=== PATIENT | female | born 1995 ===

== ENCOUNTER 2024-03-22 08:20 | Outpatient (AMB) | payer OTHER, SELFPAY ==
--- NOTE | 2024-03-22 08:29 | A.OFFPC_ITS ---
Vital Signs 03/22/24 08:36 Height 5 ft 1.5 in Weight 189 lb BMI 35.1 BP 104/64 Blood Pressure Location Lt brachial Position Sitting Respiration 14 Pulse 110 H Pulse Source Pulse Oximeter Temp 98.2 F Temp Source Oral Intake Visit Reasons: wants to discuss thyroids and pupil - see comment Intake Note: New patient visit. Issue with pupil. Saw Kamille Morfin at Dr Trujillo office. Needs to get back on thyroid medicaion. Audit Specialist Required: No Is last menstrual period known: Yes Last menstrual period: 03/10/24 Patient : No Allergies No Known Allergies Allergy (Verified 03/22/24 08:31) Tobacco use date assessed: 03/22/24 Dental Screening Dental Screen Date: 03/22/24 Did you have a dental visit in the last 12 months?: No Did you have a dental problem in the last 6 months where you did not have access to dental care?: No Was dental information given to patient?: Patient has dentist HPI HPI Comments History of Present Illness Details The patient is a 29 year old female with a past medical history of anxiety, depression hypothyroid, aniscoria presenting to [facility] care Patient has see Dr Trujillo office for intermittent aniscoria. Her right pupil has not been dilated when light dims. Her left pupil fluctuates in size. Anatomically narrow angles otherwise nothing abnormal on exam. Advised f/up with neurology. She notes this has been very prevalent since the past year but when she looks back at pictures she can note asymmetry since 2019. She denies severe headache. She does get ~2 dull headaches per week. She has a history of tinnitus which can be bilateral or unilateral, either right or left. denies pulsatile. No vision changes. She has had intermittent vertigo. She has seen ENT. Endocrine: Has hashimotos. Currently on levothyroxin 88mcg daily. Previously following with endocrinology. They have discharged her to primary care [facility] Medical History (Updated 03/22/24 @ 09:16 by Brooke Rausch MD) Depression Anxiety Vertigo Memory loss Headache Bright's disease Sinusitis Surgical History (Updated 03/22/24 @ 08:44 by Lizzie Reeves CMA) H/O section Family History (Updated 03/22/24 @ 08:48 by Lizzie Reeves CMA) Mother Diabetes Father Diabetes Thyroid disorder Maternal Grandfather HTN (hypertension) Hypercholesteremia Paternal Grandfather Prostate cancer Skin cancer Paternal Grandmother Breast cancer Other FHx: mental illness Substance use Social History (Updated 03/22/24 @ 08:34 by Lizzie Reeves [facility]) Housing: House Patient Tobacco Use Status: Never used Tobacco e-Cigarette/Vaping Use: Never Used Second Hand Smoke Exposure: No service: No Current occupational status: other Current occupation: Stay at home mom Cognitive needs: No Hearing needs: No Vision needs: Yes (glasses) Female Reproductive History Menstrual Date of last menstrual period: 03/10/24 Questionnaire PHQ-9 Over the last 2 weeks, how often have you been bothered by any of the following problems? 1. Little interest or pleasure in doing things: several days 2. Feeling down, depressed, or hopeless: several days 3. Trouble falling or staying asleep, or sleeping too much: several days 4. Feeling tired or having little energy: several days 5. Poor appetite or overeating: not at all 6. Feeling bad about yourself - or that you are a failure or have let yourself or your family down: not at all 7. Trouble concentrating on things, such as reading the newspaper or watching television: not at all 8. Moving or speaking so slowly that other people could have noticed. Or the opposite - being so fidgety or restless that you have been moving around a lot more than usual: not at all 9. Thoughts that you would be better off or of hurting yourself in some way: not at all Total score: 4 Depression Screening Interpretation: Positive Depression Screening Follow-up: Community Mental Health Worker F/U Depression Screening Done: Yes 84090 - PHQ-9 Billing: Yes Source: Developed by Drs. Gordon Harden, Vesna Medeiros, Navneet Gomez and colleagues, with an educational miguel from [email or web address]. Thrive Questionnaire Date Thrive assessed: 03/22/24 I am a: Patient What is your living situation today?: I have a steady place to live Within the past 12 months, did the food you bought not last and you didn't have the money to get more?: Never true Within the past 12 months, did you worry whether your food would run out before you got money to buy more?: Never true Do you have trouble paying for medicines?: No Do you have trouble getting transportation to medical appointments?: No Do you have trouble paying your heating and electricity bill?: No Do you have trouble taking care of your child, family member or friend?: No Do you have trouble with day-to-day activities such as bathing, preparing meals, shopping, managing finances, etc.?: No Are you currently unemployed and looking for a job?: No Are you interested in more education?: No Please select the resources that you would like help with: None Currently or been in a relationship where the following occur: no concerns reported THRIVE Score: 0 AUDIT C Alcohol Use Questionnaire (AUDIT-C) 1. How often do you have a drink containing alcohol?: Never 3. How often do you have six or more drinks on one occasion?: Never Total Score: 0 VIANCA-7 AMB Questionnaire VIANCA-7 Date VIANCA - 7 assessed: 03/22/24 Feeling nervous, anxious, or on edge: 1 = Several days Not being able to stop or control worryin = Several days Worrying too much about different things: 1 = Several days Trouble relaxin = Several days Being so restless that it is hard to sit still: 1 = Several days Becoming easily annoyed or irritable: 1 = Several days Feeling afraid as if something awful might happen: 0 = Not at all Total VIANCA-7 score (0-4 normal; 5-9 mild; 10-14 moderate; 15-21 severe): 6 Source: Developed by Drs. Gordon Harden, Vesna Medeiros, Navneet Gomez and colleagues, with an educational miguel from [employer]. VIANCA-7 Assessment Billing VIANCA-7 Assessment Tool: VIANCA-7 Assessment 80102 Review of Systems Const Details: see HPI Physical exam (Primary Care) Vital Signs: Last Vital Signs Temp 98.2 F 03/22/24 08:36 Pulse 110 H 03/22/24 08:36 Resp 14 03/22/24 08:36 BP 104/64 03/22/24 08:36 PHYSICAL EXAM: GENERAL: Alert and oriented x 3. NAD EYES: EOMI. Anicteric. Pictures provided notable for pupil assymetry HENT: Moist mucous membranes. No scleral icterus. No cervical lymphadenopathy. LUNGS: Clear to auscultation bilaterally. CARDIOVASCULAR: Regular rate and rhythm. No murmur. No JVD. ABDOMEN: Soft, non-tender +bs EXTREMITIES: No edema. Non-tender. SKIN: No rashes or lesions. Warm. NEUROLOGIC: No focal deficits at present PSYCHIATRIC: Cooperative. Appropriate mood and affect BMI result Body Mass Index 35.1 Tobacco/Smoking Status: Tobacco use Status Tobacco use date assessed 03/22/24 03/22/24 08:50 Patient Tobacco Use Status Never used Tobacco 03/22/24 08:50 e-Cigarette/Vaping Use Never Used 03/22/24 08:50 PHQ-9: PHQ-9 Score PHQ-9: Total score 4 03/22/24 08:50 Depression Screening Interpretation: Positive Depression Screening Follow-up: Community Mental Health Worker F/U Thrive Assessment: Date of Thrive Assessment Date Thrive assessed 03/22/24 03/22/24 08:50 Currently or been in a relationship where the following occur: no concerns reported Assessment and Plan Assessment & Plan (1) Vertigo: Comment: Saw ENT. Also with tinnitus. 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 Doing well Code(s): F41.9 - Anxiety disorder, unspecified (5) Anisocoria: Comment: Referral to neurology. MRI ordered. labs ordered Code(s): H57.02 - Anisocoria (6) Frequent headaches: Comment: 2x/wk Code(s): R51.9 - Headache, unspecified Orders: Orders MR head/brain wo/w con Today E06.3 - Autoimmune thyroiditis, F32.A - Depression, unspecified, F41.9 - Anxiety disorder, unspecified, H57.02 - Anisocoria, R42 - Dizziness and giddiness, R51.9 - Headache, unspecified Complete Blood Count Auto Diff Today E06.3 - Autoimmune thyroiditis, F32.A - Depression, unspecified, F41.9 - Anxiety disorder, unspecified, H57.02 - Anisocoria, R42 - Dizziness and giddiness, R51.9 - Headache, unspecified Comprehensive Met. Panel Today E06.3 - Autoimmune thyroiditis, F32.A - Depression, unspecified, F41.9 - Anxiety disorder, unspecified, H57.02 - Anisocoria, R42 - Dizziness and giddiness, R51.9 - Headache, unspecified TSH reflex Free T4 Today E06.3 - Autoimmune thyroiditis, F32.A - Depression, unspecified, F41.9 - Anxiety disorder, unspecified, H57.02 - Anisocoria, R42 - Dizziness and giddiness, R51.9 - Headache, unspecified Erythrocyte Sedimentation Rate Today E06.3 - Autoimmune thyroiditis, F32.A - Depression, unspecified, F41.9 - Anxiety disorder, unspecified, H57.02 - Anisocoria, R42 - Dizziness and giddiness, R51.9 - Headache, unspecified Lyme IgG/IgM w/reflex to WB Today E06.3 - Autoimmune thyroiditis, F32.A - Depression, unspecified, F41.9 - Anxiety disorder, unspecified, H57.02 - Anisocoria, R42 - Dizziness and giddiness, R51.9 - Headache, unspecified TWIN Reflex Titer and Pattern Today E06.3 - Autoimmune thyroiditis, F32.A - Depression, unspecified, F41.9 - Anxiety disorder, unspecified, H57.02 - Anisoc oria, R42 - Dizziness and giddiness, R51.9 - Headache, unspecified Vitamin D 1,25 dihydroxy Today E06.3 - Autoimmune thyroiditis, F32.A - Depression, unspecified, F41.9 - Anxiety disorder, unspecified, H57.02 - Anisocoria, R42 - Dizziness and giddiness, R51.9 - Headache, unspecified Vitamin B3 (Niacin) Today E06.3 - Autoimmune thyroiditis, F32.A - Depression, unspecified, F41.9 - Anxiety disorder, unspecified, H57.02 - Anisocoria, R42 - Dizziness and giddiness, R51.9 - Headache, unspecified Hemoglobin A1c Today E06.3 - Autoimmune thyroiditis, F32.A - Depression, unspecified, F41.9 - Anxiety disorder, unspecified, H57.02 - Anisocoria, R42 - Dizziness and giddiness, R51.9 - Headache, unspecified Cortisol Random Today E06.3 - Autoimmune thyroiditis, F32.A - Depression, unspecified, F41.9 - Anxiety disorder, unspecified, H57.02 - Anisocoria, R42 - Dizziness and giddiness, R51.9 - Headache, unspecified Vitamin B2 (Riboflavin) Today E06.3 - Autoimmune thyroiditis, F32.A - Depression, unspecified, F41.9 - Anxiety disorder, unspecified, H57.02 - Anisocoria, R42 - Dizziness and giddiness, R51.9 - Headache, unspecified Vitamin B6 Today E06.3 - Autoimmune thyroiditis, F32.A - Depression, unspecified, F41.9 - Anxiety disorder, unspecified, H57.02 - Anisocoria, R42 - Dizziness and giddiness, R51.9 - Headache, unspecified Magnesium Today E06.3 - Autoimmune thyroiditis, F32.A - Depression, unspecified, F41.9 - Anxiety disorder, unspecified, H57.02 - Anisocoria, R42 - Dizziness and giddiness, R51.9 - Headache, unspecified Vitamin B12 Today H57.02 - Anisocoria Referrals Neurology Referral E06.3 - Autoimmune thyroiditis, F32.A - Depression, unspecified, F41.9 - Anxiety disorder, unspecified, H57.02 - Anisocoria, R42 - Dizziness and giddiness, R51.9 - Headache, unspecified Coding Level of Care Code Tele New Pt Level 5 (17433) Complex EM visit Add On G2211 Diagnoses Vertigo R42 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 Recurrent major depressive disorder, in partial remission F33.41 Depression Type: major depressive disorder Major depression recurrence: recurrent Active/Remission status: in partial remission Anxiety F41.9 Anisocoria H57.02 Frequent headaches R51.9 Additional Codes VIANCA-7 Assessment Billing - VIANCA-7 Assessment Tool: VIANCA-7 Assessment 80640 ([id number]) Time Spent (min) 65
[2024-03-22 08:36] VITALS: BP 104/64; PULSE 110; RESP 14; TEMP 36.8; BMI 35.1
== END 2024-03-22 10:21 | disposition home or self-care (01) ==
PROVIDERS: Visit Provider Internal Medicine
DX: R42 Dizziness and giddiness (principal); E06.3 Autoimmune thyroiditis; F33.41 Major depressive disorder, recurrent, in partial remission; F41.9 Anxiety disorder, unspecified; H57.02 Anisocoria; R51.9 Headache, unspecified
CPT/HCPCS: 99205; G2211

== ENCOUNTER 2024-03-22 09:19 | Outpatient (REF) | payer OTHER, SELFPAY ==
[2024-03-22 11:21] LABS: MANUAL DIFF FLAG NO
[2024-03-22 11:35] LABS: Basophils Percent Auto 0.6 % (0-2); Eosinophils Percent Auto 0.8 % (0-4); Hematocrit 42.4 % (37.0-47.0); Hemoglobin 14.8 g/dl (12.0-16.0); Imm Gran Abs Auto 0.02 X10*3/uL (0.00-0.03); Imm Gran Pct Auto 0.4 % (0.0-0.4); Lymphocytes Absolute Auto 1.3 X10*3/uL (1.2-4.9); Lymphocytes Percent Auto 26.2 % (20-40); Mean Corpuscular HGB Conc 34.9 g/dl (31.0-35.0); Mean Corpuscular Hemoglobin 30.2 pg (27.0-33.0); Mean Corpuscular Volume 86.5 fL (80.0-98.0); Mean Platelet Volume 10.8 fL (9.4-12.3); Monocytes Absolute Auto 0.4 X10*3/uL (0.1-1.2); Monocytes Percent Auto 7.7 % (2-11); Neutrophils Absolute Auto 3.2 x10*3/uL (2.0-8.3); Neutrophils Percent Auto 64.3 % (45-73); Platelet Count 249 X10*3/uL (160-400); Red Cell Distribution Width 12.7 % (11.0-16.0); White Blood Count 4.9 X10*3/uL (4.8-10.8)
[2024-03-22 11:41] LABS: Estimated Average Glucose 103 mg/dL; Hemoglobin A1c % 5.2 % (<6.0)
[2024-03-22 11:47] LABS: Alanine Aminotransferase 10 U/L (0-31); Albumin Level 4.2 g/dL (3.5-5.0); Alkaline Phosphatase 57 U/L (39-117); Anion Gap 13 (12-20); Aspartate Amino Transferase 15 U/L (5-31); Bilirubin Total 0.8 mg/dL (0.0-1.0); Blood Urea Nitrogen 11 mg/dL (9-16); Calcium 9.1 mg/dL (8.4-10.2); Carbon Dioxide 24 mmol/L (22-29); Chloride 106 mmol/L (96-108); Estimated Glomerular Filt Rate > 60; Glucose Random 93 mg/dL (60-115); Magnesium 1.7 mg/dL (1.6-2.6); Potassium 3.5 mmol/L (3.3-5.1); Sodium 139 mmol/L (135-145); Total Protein 7.2 g/dL (6.5-8.0)
[2024-03-22 12:06] LABS: Vitamin B12 351 pg/mL (200-900)
[2024-03-22 12:10] LABS: TSH reflex Free T4 3.68 uIU/mL (0.32-4.0)
[2024-03-22 12:21] LABS: Erythrocyte Sedimentation Rate 2 MM/HR (0-20)
[2024-03-23 08:33] LABS: Lyme Abs Screen <0.90 index
[2024-03-26 14:52] LABS: VITAMIN D (1,25 OH) D3 38 pg/mL; Vit D (1,25-Dihydroxy) Total 38 pg/mL (18-72); Vitamin D (1,25 OH) D2 <8 pg/mL
[2024-03-27 17:33] LABS: Nicotinamide 22 ng/mL; Vit B3 - Nicotinic Acid <20 ng/mL
[2024-03-28 09:09] LABS: Anti Nuclear Antibody Pattern Nuclear, Homogeneous; Anti Nuclear Antibody Screen POSITIVE (NEGATIVE)
[2024-03-29 06:19] LABS: Vitamin B6 10.7 ng/mL (2.1-21.7)
== END 2024-03-22 09:20 | disposition home or self-care (01) ==
LOC: HO.WFDLDS 09:19
PROVIDERS: Visit Provider Internal Medicine
DX: R51.9 Headache, unspecified (principal); H57.02 Anisocoria; R42 Dizziness and giddiness; E06.3 Autoimmune thyroiditis; F32.A Depression, unspecified; F41.9 Anxiety disorder, unspecified
CPT/HCPCS: 36415; 80053; 82533; 82607; 82652; 83036; 83735; 84207; 84443; 84591; 85025; 85652; 86038; 86039; 86617; 86618

== ENCOUNTER 2024-05-24 09:04 | Outpatient (AMB) | payer OTHER, SELFPAY ==
--- NOTE | 2024-05-24 09:09 | MHC.PC.OV ---
Vital Signs 05/24/24 09:11 Height 5 ft 1 in Weight 180 lb BMI 34.0 BP 108/60 Blood Pressure Location Lt brachial Position Sitting Pulse 82 Pulse Source Pulse Oximeter Pulse Oximetry (%) 99 Oxygen Delivery Method Room Air Intake Visit Reasons: F/U 2 months Intake Note: Patient is here for a follow up today. Patient reports sometimes feeling dizzy, asked about low blood pressure. Public Relations Consultant Required: No Accompanied by: Self / Same As Patient Allergies No Known Allergies Allergy (Verified 05/24/24 09:15) Tobacco use date assessed: 03/22/24 Dental Screening Dental Screen Date: 03/22/24 HPI HPI Comments History of Present Illness Details The patient is a 29 year old female with a past medical history of anxiety, depression hypothyroid, aniscoria presenting for follow up Patient has see Dr Trujillo office for intermittent aniscoria. Her right pupil has not been dilated when light dims. Her left pupil fluctuates in size. Anatomically narrow angles otherwise nothing abnormal on exam. Advised f/up with neurology. She notes this has been very prevalent since the past year but when she looks back at pictures she can note asymmetry since 2019. She denies severe headache. She does get ~2 dull headaches per week. She has a history of tinnitus which can be bilateral or unilateral, either right or left. denies pulsatile. No vision changes. She has had intermittent vertigo. She has seen ENT. Saw [facility] neurology, YAYO burgess. MRI/MRA on June 05. Possibly think Pending rheumatology June Endocrine: Has hashimotos. Currently on levothyroxine 88mcg daily. Previously following with endocrinology. They have discharged her to primary care ROS CONSTITUTIONAL: Denies weight loss, fever and chills. HEENT: Denies changes in vision and hearing. RESPIRATORY: Denies SOB and cough. CV: Denies palpitations and CP GI: Denies abdominal pain, nausea, vomiting and diarrhea. : Denies dysuria and urinary frequency. MSK: Denies new myalgia and joint pain. SKIN: Denies rash and pruritus. NEUROLOGICAL: Denies headache PSYCHIATRIC: Denies recent changes in mood. PHYSICAL EXAM: GENERAL: Alert and oriented x 3. NAD EYES: EOMI. Anicteric. HENT: Moist mucous membranes. No scleral icterus. LUNGS: Clear to auscultation bilaterally. CARDIOVASCULAR: Regular rate and rhythm. No murmur. No JVD. ABDOMEN: Soft, non-tender +bs EXTREMITIES: No edema. Non-tender. SKIN: No rashes or lesions. Warm. NEUROLOGIC: Mild aniscoria PSYCHIATRIC: Cooperative. Appropriate mood and affect [facility] Medical History Depression Anxiety Vertigo Memory loss Headache Bright's disease Sinusitis Surgical History H/O section Family History Mother Diabetes Father Diabetes Thyroid disorder Maternal Grandfather HTN (hypertension) Hypercholesteremia Paternal Grandfather Prostate cancer Skin cancer Paternal Grandmother Breast cancer Other FHx: mental illness Substance use Social History Housing: House Patient Tobacco Use Status: Never used Tobacco e-Cigarette/Vaping Use: Never Used Second Hand Smoke Exposure: No service: No Current occupational status: other Current occupation: Stay at home mom Cognitive needs: No Hearing needs: No Vision needs: Yes (glasses) Questionnaire Thrive Questionnaire Date Thrive assessed: 03/22/24 VIANCA-7 AMB Questionnaire VIANCA-7 Date VIANCA - 7 assessed: 03/22/24 Source: Developed by Drs. Gordon Harden, Vesna Medeiros, Navneet Gomez and colleagues, with an educational miguel from [employer]. Physical exam (Primary Care) Vital Signs: Last Vital Signs Pulse 82 05/24/24 09:11 BP 108/60 05/24/24 09:11 Pulse Ox 99 05/24/24 09:11 Oxygen Delivery Method Room Air 05/24/24 09:11 BMI result Body Mass Index 34.0 Tobacco/Smoking Status: Tobacco use Status Tobacco use date assessed 03/22/24 05/24/24 09:14 Patient Tobacco Use Status Never used Tobacco 05/24/24 09:14 e-Cigarette/Vaping Use Never Used 05/24/24 09:14 Thrive Assessment: Date of Thrive Assessment Date Thrive assessed 03/22/24 05/24/24 09:14 Assessment and Plan Assessment & Plan (1) Anisocoria: Code(s): H57.02 - Anisocoria Plan: Follow up neurology, MRA/MRI (2) Frequent headaches: Code(s): R51.9 - Headache, unspecified Plan: MRI/MRA pending. (3) Positive TWIN (antinuclear antibody): Code(s): R76.8 - Other specified abnormal immunological findings in serum Plan: rheumatology pending (4) Vertigo: Comment: Saw ENT. Also with tinnitus. Can be unilateral but changes or bilateral Code(s): R42 - Dizziness and giddiness Medications: New meclizine 25 mg PO BID PRN 30 tabs 0RF dizziness 30 days Coding Level of Care Code Est Pt Level 4 (77573) Diagnoses Anisocoria H57.02 Frequent headaches R51.9 Positive TWIN (antinuclear antibody) R76.8 Vertigo R42
[2024-05-24 09:11] VITALS: BP 108/60; PULSE 82; O2SAT 99; BMI 34.0
== END 2024-05-24 09:43 | disposition home or self-care (01) ==
PROVIDERS: PCP Internal Medicine; Visit Provider Internal Medicine
DX: H57.02 Anisocoria (principal); R51.9 Headache, unspecified; R76.8 Other specified abnormal immunological findings in serum; R42 Dizziness and giddiness
CPT/HCPCS: 99214

== ENCOUNTER 2024-09-03 11:31 | Outpatient (AMB) | payer OTHER, SELFPAY ==
--- NOTE | 2024-09-03 11:33 | A.OFFPC_ITS ---
Vital Signs 09/03/24 11:36 Height 5 ft 1 in Weight 190 lb 2 oz BMI 35.9 BP 104/67 Blood Pressure Location Lt brachial Position Sitting Respiration 13 Pulse 61 Pulse Source Pulse Oximeter Pulse Oximetry (%) 98 Oxygen Delivery Method Room Air Intake Visit Reasons: Transfer of care from [facility] - see comments Intake Note: keanu and needs a new referral Allergies No Known Allergies Allergy (Verified 09/03/24 12:12) Medication List - Last Reconciled 09/03/24 by KHOI Skaggs- buspirone 10 mg PO TID levothyroxine 88 mcg PO DAILY meclizine 25 mg PO BID PRN 30 days Tobacco use date assessed: 03/22/24 Dental Screening Dental Screen Date: 03/22/24 HPI HPI Comments History of Present Illness Details Mary Kay 29 year old female with VIANCA, MDD, hypothyroid, Right aniscoria d/t Horners Syndrome , + TWIN s/p c section 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 PAP ? Tdap 07/09/2019 Labs 03/2024 WNL except + TWIN Specialists: ENT of [facility] for vertigo and tinnitus Neuro Ashu Al [facility] concern for MS? Optho Dr Elisabeth Morfin Counselor [facility] told of fibro dx no f/u scheduled Endo [facility] next appt 10/2024 manages thyroid Here today to est care She has hypothyroidism, currently followed by endocrinology. Has not been consistent with taking her levothyroxine. Her last TSH was 3.94 in March. Reports that overall she feels well when her TSH is closer to 1. Be that as it may, she has been inconsistently taking levothyroxine 88 mcg since February. Generalized anxiety disorder, she is active with a counselor. She was prescribed buspirone 10 mg PO TID. She has not started yet. She will start this however wishes to titrate slowly. In other regards her biggest medical problem at this time is that of anisocoria, vertigo and headaches. She was in her normal state of health until February of 2024. Her right pupil is smaller than her left. She feels very dizzy when she was lying flat. If she gets up too quick she feels floaty an odd. When she moves her head and turns head specifically to the right she feels dizzy. She did see ENT for this. 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 However the symptoms that she has are different than this. She was referred to a neuro- supervisor cooperage shop by her primary supervisor cooperage shop. A workup was started. Ultimately an MRI of the cervical spine only to rule out tumor, spinal disease and carotid dissection, an MRA of the neck carotids and arch to rule out carotid dissection on the right, and a CTA of the brain especially right brainstem to the retro orbit and globes was ordered. For reasons discussed today at the visit they were not completed. Patient would like to pursue these images through primary care. Specifically she would like to use [facility] but will see [facility] if needed; does not prefer [facility]. Ortho VS today during exam, Left arm: Sitting 112/70 P 74 Sitting 124/80 P 67 standing 120/78 78 Lying Standing from lying 120/80 P jumped to 101 felt slightly dizzy Exam: GENERAL: Alert and oriented x 3. NAD EYES: EOMI. Anicteric. Aniscoria R pupil smaller than L, reactive HENT: Moist mucous membranes. No scleral icterus. LUNGS: Clear to auscultation bilaterally. CARDIOVASCULAR: Regular rate and rhythm. No murmur. No JVD. EXTREMITIES: No edema. Non-tender. NEUROLOGIC: Other than aniscoria, No focal deficits at present PSYCHIATRIC: Cooperative. Appropriate mood and affect Plan: Check labs today - at close of note no results. Will review once they are done and resulted. MRI/MRA and CTA ordered as above. Ok to titrate the buspirone; cont w counselor Will need to restart levothyroxine. Will await TSH results. Advised if ok w/ Endo, I would be happy to monitor her Hypothyroid going forward. At this time, keep 10/2024 fu with Endo I would like to see her back in about 6 weeks to fu on the above, sooner PRN This note is constructed using voice recognition software. While every effort has been made to ensure accuracy in dredge pipe installer, still errors may have been included Sometimes, these errors may affect the content or meaning of the given sentence . Total time spent caring for the patient today was 70 minutes. This includes time spent before the visit reviewing the chart, time spent during the visit, and time spent after the visit on documentation [facility] Medical History (Updated 09/03/24 @ 14:48 by KHOI Skaggs-BC) Depression Anxiety Vertigo Memory loss Headache Bright's disease Sinusitis Surgical History H/O section Family History Mother Diabetes Father Diabetes Thyroid disorder Maternal Grandfather HTN (hypertension) Hypercholesteremia Paternal Grandfather Prostate cancer Skin cancer Paternal Grandmother Breast cancer Other FHx: mental illness Substance use Social History Housing: House Patient Tobacco Use Status: Never used Tobacco e-Cigarette/Vaping Use: Never Used Second Hand Smoke Exposure: No service: No Current occupational status: other Current occupation: Stay at home mom Cognitive needs: No Hearing needs: No Vision needs: Yes (glasses) Questionnaire PHQ-9 Over the last 2 weeks, how often have you been bothered by any of the following problems? 70947 - PHQ-9 Billing: Patient declined-do not bill Source: Developed by Drs. Gordon Harden, Vesna Medeiros, Navneet Gomez and colleagues, with an educational miguel from [employer]. Thrive Questionnaire Date Thrive assessed: 09/03/24 I am a: Patient What is your living situation today?: I choose not to answer this question Within the past 12 months, did the food you bought not last and you didn't have the money to get more?: I choose not to answer this question Within the past 12 months, did you worry whether your food would run out before you got money to buy more?: I choose not to answer this question Do you have trouble paying for medicines?: I choose not to answer this question Do you have trouble getting transportation to medical appointments?: I choose not to answer this question Do you have trouble paying your heating and electricity bill?: I choose not to answer this question Do you have trouble taking care of your child, family member or friend?: I choose not to answer this question Do you have trouble with day-to-day activities such as bathing, preparing meals, shopping, managing finances, etc.?: I choose not to answer this question Are you currently unemployed and looking for a job?: I choose not to answer this question Are you interested in more education?: I choose not to answer this question Please select the resources that you would like help with: None Currently or been in a relationship where the following occur: I choose not to answer THRIVE Score: 0 AUDIT C Alcohol Use Questionnaire (AUDIT-C) 1. How often do you have a drink containing alcohol?: Never Total Score: 0 VIANCA-7 AMB Questionnaire VIANCA-7 Date VIANCA - 7 assessed: 09/03/24 Feeling nervous, anxious, or on edge: 1 = Several days Not being able to stop or control worryin = Several days Worrying too much about different things: 1 = Several days Trouble relaxin = Several days Being so restless that it is hard to sit still: 0 = Not at all Becoming easily annoyed or irritable: 0 = Not at all Feeling afraid as if something awful might happen: 0 = Not at all Total VIANCA-7 score (0-4 normal; 5-9 mild; 10-14 moderate; 15-21 severe): 4 Source: Developed by Drs. Gordon Harden, Vesna Medeiros, Navneet Gomez and colleagues, with an educational miguel from [employer]. VIANCA-7 Assessment Billing VIANCA-7 Assessment Tool: VIANCA-7 Assessment 71836 Physical exam (Primary Care) Vital Signs: Last Vital Signs Pulse 61 09/03/24 11:36 Resp 13 09/03/24 11:36 BP 104/67 09/03/24 11:36 Pulse Ox 98 09/03/24 11:36 Oxygen Delivery Method Room Air 09/03/24 11:36 BMI result Body Mass Index 35.9 Tobacco/Smoking Status: Tobacco use Status Tobacco use date assessed 03/22/24 09/03/24 11:38 Patient Tobacco Use Status Never used Tobacco 09/03/24 11:38 e-Cigarette/Vaping Use Never Used 09/03/24 11:38 Thrive Assessment: Date of Thrive Assessment Date Thrive assessed 09/03/24 09/03/24 11:38 Currently or been in a relationship where the following occur: I choose not to answer Coding Level of Care Code Est Pt Level 5 (07506) Complex EM visit Add On G2211 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 (2) Anisocoria: Comment: R<L Code(s): H57.02 - Anisocoria Category: Medical Plan: . (3) Positive TWIN (antinuclear antibody): Code(s): R76.8 - Other specified abnormal immunological findings in serum Category: Medical Plan: . (4) Vertigo: Comment: Saw ENT. Also with tinnitus. Can be unilateral but changes or bilateral Code(s): R42 - Dizziness and giddiness Category: Medical Plan: . (5) Frequent headaches: Code(s): R51.9 - Headache, unspecified Category: Medical Plan: . 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 (7) VIANCA (generalized anxiety disorder): Code(s): F41.1 - Generalized anxiety disorder Category: Medical Plan: . (8) MDD (major depressive disorder), recurrent episode: Code(s): F33.9 - Major depressive disorder, recurrent, unspecified Category: Medical Qualifiers: Major depression episode severity: mild Qualified Code(s): F33.0 - Major depressive disorder, recurrent, mild Plan: . Plan . Orders: Orders Complete Blood Count no Diff Today E06.3 - Autoimmune thyroiditis, H57.02 - Anisocoria, R76.8 - Other specified abnormal immunological findings in serum Comprehensive Met. Panel Today E06.3 - Autoimmune thyroiditis, H57.02 - Anisocoria, R76.8 - Other specified abnormal immunological findings in serum Microalbumin, Random (w Creat) Today E06.3 - Autoimmune thyroiditis, H57.02 - Anisocoria, R76.8 - Other specified abnormal immunological findings in serum TSH reflex Free T4 Today E06.3 - Autoimmune thyroiditis, H57.02 - Anisocoria, R76.8 - Other specified abnormal immunological findings in serum Vitamin B12 and Folate Today E06.3 - Autoimmune thyroiditis, H57.02 - Anisocoria, R76.8 - Other specified abnormal immunological findings in serum Vitamin D 25-OH Total Today E06.3 - Autoimmune thyroiditis, H57.02 - Anisocoria, R76.8 - Other specified abnormal immunological findings in serum Ferritin Today E06.3 - Autoimmune thyroiditis, H57.02 - Anisocoria, R76.8 - Other specified abnormal immunological findings in serum MR angio neck wo con Today G90.2 - Estuardo's syndrome, R42 - Dizziness and giddiness, R51.9 - Headache, unspecified CT angio head Today G90.2 - Estuardo's syndrome, R42 - Dizziness and giddiness, R51.9 - Headache, unspecified IRON PROFILE Today E06.3 - Autoimmune thyroiditis, H57.02 - Anisocoria, R76.8 - Other specified abnormal immunological findings in serum Lipid Panel Today E06.3 - Autoimmune thyroiditis, H57.02 - Anisocoria, R76.8 - Other specified abnormal immunological findings in serum MR cervical spine wo con Today G90.2 - Estuardo's syndrome, R42 - Dizziness and giddiness, R51.9 - Headache, unspecified
[2024-09-03 11:36] VITALS: BP 104/67; PULSE 61; RESP 13; O2SAT 98; BMI 35.9
== END 2024-09-03 12:31 | disposition home or self-care (01) ==
PROVIDERS: PCP Internal Medicine; Visit Provider Nurse Practitioner Family
DX: E06.3 Autoimmune thyroiditis (principal); F33.0 Major depressive disorder, recurrent, mild; H57.02 Anisocoria; R76.8 Other specified abnormal immunological findings in serum; R42 Dizziness and giddiness; R51.9 Headache, unspecified; G90.2 Horner's syndrome; F41.1 Generalized anxiety disorder

== ENCOUNTER → 2024-09-03 11:31 | Outpatient (BNVA) | payer OTHER, SELFPAY | PROVIDERS: PCP Internal Medicine; Visit Provider Nurse Practitioner Family | DX: E06.3 Autoimmune thyroiditis (principal); H57.02 Anisocoria; R76.8 Other specified abnormal immunological findings in serum; R42 Dizziness and giddiness; R51.9 Headache, unspecified; G90.2 Horner's syndrome; F41.1 Generalized anxiety disorder; F33.0 Major depressive disorder, recurrent, mild; Z79.899 Other long term (current) drug therapy | CPT/HCPCS: 96127 ==

== ENCOUNTER 2024-09-03 13:36 | Outpatient (REF) | payer OTHER, SELFPAY ==
[2024-09-03 17:28] LABS: Hematocrit 39.3 % (37.0-47.0); Hemoglobin 13.5 g/dl (12.0-16.0); Mean Corpuscular HGB Conc 34.4 g/dl (31.0-35.0); Mean Corpuscular Hemoglobin 29.9 pg (27.0-33.0); Mean Corpuscular Volume 87.1 fL (80.0-98.0); Mean Platelet Volume 10.6 fL (9.4-12.3); Platelet Count 273 X10*3/uL (160-400); Red Blood Count 4.51 X10*6/uL (4.20-5.50); Red Cell Distribution Width 12.6 % (11.0-16.0); White Blood Count 10.5 X10*3/uL (4.8-10.8)
[2024-09-03 17:46] LABS: Alanine Aminotransferase 11 U/L (0-31); Albumin Level 3.9 g/dL (3.5-5.0); Alkaline Phosphatase 59 U/L (39-117); Anion Gap 12 (12-20); Aspartate Amino Transferase 15 U/L (5-31); Bilirubin Total 0.3 mg/dL (0.0-1.0); Blood Urea Nitrogen 14 mg/dL (9-16); Calcium 8.9 mg/dL (8.4-10.2); Carbon Dioxide 24 mmol/L (22-29); Chloride 105 mmol/L (96-108); Cholesterol 133 mg/dL (<200); Estimated Glomerular Filt Rate > 60; Glucose Random 89 mg/dL (60-115); HDL Cholesterol 44 mg/dL (>40); Iron 55 mcg/dL (30-160); LDL Cholesterol Calculated 76 mg/dL (<100); Percent Iron Saturation 19 % (15-50); Potassium 3.8 mmol/L (3.3-5.1); Sodium 137 mmol/L (135-145); Total Iron Binding Capacity 285 mcg/dL (228-428); Total Protein 6.7 g/dL (6.5-8.0); Triglycerides 68 mg/dL (<150); Unsaturated Iron Binding 230 ug/dL
[2024-09-03 18:01] LABS: Ferritin 34 ng/mL (10-122); TSH reflex Free T4 4.57 uIU/mL (0.32-4.0); Vitamin D 25-OH Total 42.8 ng/mL (>30)
[2024-09-03 18:02] LABS: Creatinine Urine 129.77 mg/dL; Microalbumin Urine < 5.0 mg/L
[2024-09-03 18:12] LABS: Folate 6.4 ng/mL (> or = 4.0); Vitamin B12 392 pg/mL (200-900)
[2024-09-03 18:50] LABS: Free T4 (Free Thyroxine) 0.85 ng/dL (0.71-1.85)
== END 2024-09-03 13:37 | disposition home or self-care (01) ==
LOC: HO.WFDLDS 13:36
PROVIDERS: Visit Provider Nurse Practitioner Family
DX: H57.02 Anisocoria (principal); R76.8 Other specified abnormal immunological findings in serum; E06.3 Autoimmune thyroiditis
CPT/HCPCS: 36415; 80053; 80061; 82306; 82570; 82607; 82728; 82746; 83540; 84439; 84443; 85027

== ENCOUNTER 2025-01-10 09:46 | Outpatient (AMB) | payer OTHER, SELFPAY ==
--- NOTE | 2025-01-10 09:59 | A.OFFPC_ITS ---
Intake Visit Reasons: fu mri and ct Allergies No Known Allergies Allergy (Verified 01/10/25 10:05) Medication List - Last Reconciled 01/10/25 by Nikki Slaughter, [employer]SEMBL[employer]- buspirone 10 mg PO TID levothyroxine 88 mcg PO DAILY meclizine 25 mg PO BID PRN 30 days Tobacco use date assessed: 01/10/25 Dental Screening Dental Screen Date: 01/10/25 Did you have a dental visit in the last 12 months?: Yes Did you have a dental problem in the last 6 months where you did not have access to dental care?: No Was dental information given to patient?: Patient has dentist HPI HPI Comments 2 History of Present Illness0 Details Mary Kay 29 year old female with VIANCA, MDD, hypothyroid, Right aniscoria d/t Horners Syndrome , + TWIN s/p c section 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 PAP ? Tdap 07/09/2019 Labs 03/2024 WNL except + TWIN Specialists: ENT of [facility] for vertigo and tinnitus Neuro Ashu Al [facility] concern for MS? she needs to schedule f/u Optho Dr Elisabeth Morfin Counselor Rheum [facility] told of fibro dx no f/u scheduled Endo [facility] next appt 10/2024 manages thyroid At last office visit: biggest medical problem at this time is that of anisocoria, vertigo and headaches. She was in her normal state of health until February of 2024. Her right pupil is smaller than her left. She feels very dizzy when she was lying flat. If she gets up too quick she feels floaty an odd. When she moves her head and turns head specifically to the right she feels dizzy. She did see ENT for this. 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 However the symptoms that she has are different than this. She was referred to a neuro-computational linguist by her primary computational linguist. A workup was started. Ultimately an MRI of the cervical spine only to rule out tumor, spinal disease and carotid dissection, an MRA of the neck carotids and arch to rule out carotid dissection on the right, and a CTA of the brain especially right brainstem to the retro orbit and globes was ordered. For reasons discussed today at the visit they were not completed. Patient would like to pursue these images through primary care. Telehealth visit today to review imaging to mallika Leo anisocoria, headache and dizziness - The patient is a 29-year-old female pr esenting with concerns regarding anisocoria and associated symptoms. - Noticed anisocoria in 2021, with past photographs indicating presence since 2019. - Imaging: Recent MRI of neck and cervic al spine (normal), CTA of head (normal). 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 Wonders about harlequin syndrome during infancy, first 3 days after right side of body white , left side red. - Diagnostic Workup: MRI and CT for Horn er's Syndrome, including brain and neck imaging. - Symptoms: Persistent headaches, vertig o, new swallowing difficulties, and eyelid asymmetry. - Thyroid Disorder: Ongoing management w ith endocrinological oversight. last visit 10/2024, reports tolerance and compliance w/ levothyroxine. Due for labs. Headaches come and go New c/o change in Ability to swallow, feels like it gets stuck, has to chug h20. Happens a few times per day. New in the last 8 months. Right eye lid, has lid lag. This is the same side as aniscoria. Also new. She wonders about labs repeat CBC Mag Phos B vitamins D TSH TWIN Assessment and Plan The 29-year-old female with a history of anisocoria presents with concerns primarily surrounding variable pupil size, now potentially associated with Estuardo's Syndrome. Imaging studies, including MRI of the neck and cervical spine, and CTA of the head displayed no significant findings. However, the patient's identification of potential undocumented sinus findings calls into question the comprehensiveness of her diagnostic evaluation. Symptoms of vertigo, headaches, swallowing difficulties, and eyelid asymmetry persist, potentially related to her past thyroid disorder. Further imaging review is necessary to ensure thorough assessment and clarify any diagnostic ambiguities. Reviewed labs from 03/2024 and 08/2024 all of which were normal except TSH and TWIN. No clinical need to repeat any additional labs as these have all been normal to date. 1. Estuardo's Syndrome Further imaging of thoracic regions is advised, with radiology input for comprehensive evaluation. Consideration of chest imaging to identify potential thoracic or pulmonary contributions. 2. Thyroid Disorder TSH level assessment is pending to correlate symptoms with thyroid function. She wonders about a posterior thyroid tumor causing her aniscoria and wants this to be looked at. 3. Anisocoria Right Anisocoria persists and imaging results show no critical findings to date, although patient-identified sinus concerns exist. A reevaluation of recent imaging is planned to specifically address potential sinus pathology. 4. Vestibular Dysfunction active w/ Neurology for recurring vertigo and headaches Plan: Re-read films. Eval sinuses, lungs, eval thyroid [facility] radiology phone# [phone]. Telehealth Attestation Documentation created based on verbal interaction through telehealth communication. Accuracy of documentation is affirmed. The patient has been explained that this is an interactive (audio/video) telehealth encounter and what that consists of. The patient understands and wishes to proceed. [employer] platform was used. Total time spent caring for the patient today was 69 minutes. This includes time spent before the visit reviewing the chart, time spent during the visit, and time spent after the visit on documentation, reviewing laboratory results, diagnostic imaging, medications, performing a medically necessary evaluation, counseling on diagnoses, care coordination, ordering appropriate tests, ordering appropriate medications, review of tests performed by other providers, reporting test results with the patient, communication with other healthcare providers. [facility] Medical History (Updated 09/03/24 @ 14:48 by Nikki Slaughter [facility]) Anxiety Depression Bright's disease Headache Memory loss Sinusitis Vertigo Surgical History H/O section Family History Mother Diabetes Father Diabetes Thyroid disorder Maternal Grandfather HTN (hypertension) Hypercholesteremia Paternal Grandfather Prostate cancer Skin cancer Paternal Grandmother Breast cancer Other FHx: mental illness Substance use Social History Housing: House Patient Tobacco Use Status: Never used Tobacco e-Cigarette/Vaping Use: Never Used Second Hand Smoke Exposure: No service: No Current occupational status: other Current occupation: Stay at home mom Cognitive needs: No Hearing needs: No Vision needs: Yes (glasses) Questionnaire Thrive Questionnaire Date Thrive assessed: 01/10/25 I am a: Patient What is your living situation today?: I have a steady place to live Within the past 12 months, did the food you bought not last and you didn't have the money to get more?: Never true Within the past 12 months, did you worry whether your food would run out before you got money to buy more?: Never true Do you have trouble paying for medicines?: No Do you have trouble getting transportation to medical appointments?: No Do you have trouble paying your heating and electricity bill?: No Do you have trouble taking care of your child, family member or friend?: No Do you have trouble with day-to-day activities such as bathing, preparing meals, shopping, managing finances, etc.?: No Are you currently unemployed and looking for a job?: No Are you interested in more education?: No Please select the resources that you would like help with: None Currently or been in a relationship where the following occur: No concerns reported THRIVE Score: 0 AUDIT C Alcohol Use Questionnaire (AUDIT-C) 1. How often do you have a drink containing alcohol?: Never 2. How many drinks containing alcohol do you have on a typical day when you are drinking?: 1 or 2 3. How often do you have six or more drinks on one occasion?: Never Total Score: 0 Score Reviewed/Action Taken: Yes VIANCA-7 AMB Questionnaire VIANCA-7 Date VIANCA - 7 assessed: 09/03/24 Source: Developed by Drs. Gordon Harden, Vesna Medeiros, Navneet Gomez and colleagues, with an educational miguel from [employer]. Physical exam (Primary Care) Tobacco/Smoking Status: Tobacco use Status Tobacco use date assessed 01/10/25 01/10/25 10:06 Patient Tobacco Use Status Never used Tobacco 01/10/25 10:06 e-Cigarette/Vaping Use Never Used 01/10/25 10:06 Thrive Assessment: Date of Thrive Assessment Date Thrive assessed 01/10/25 01/10/25 10:06 Currently or been in a relationship where the following occur: No concerns reported Telehealth Telehealth Telehealth Platform: [facility] Location of provider rendering services: practice address Location of patient: address on file Patient Identification confirmed using: Name, : Yes Telehealth method: video (pt unable to see me,so transferred to voice only ) Patient verbally consented to treatment: Yes Patient verbally consented to billing insurance company: Yes Patient informed of any privacy concerns related to visit: Yes Minutes spent on Phone/Video with Pt.: 45 Coding Level of Care Code Tele Est Pt Level 5 (66184) Complex EM visit Add On G2211 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 Orders: Orders 2 TSH reflex Free T4 01/10/25 E06.3 - Autoimmune thyroiditis
== END 2025-01-10 10:30 | disposition home or self-care (01) ==
LOC: HO.HMCFM 09:47
PROVIDERS: PCP Nurse Practitioner Family; Visit Provider Nurse Practitioner Family
DX: E06.3 Autoimmune thyroiditis (principal); G90.2 Horner's syndrome; R76.8 Other specified abnormal immunological findings in serum

== ENCOUNTER → 2025-01-10 09:46 | Outpatient (BNVA) | payer OTHER, SELFPAY | PROVIDERS: PCP Nurse Practitioner Family; Visit Provider Nurse Practitioner Family ==

== ENCOUNTER 2025-02-11 13:58 | Outpatient (REF) | payer OTHER, SELFPAY ==
[2025-02-11 18:35] LABS: TSH reflex Free T4 0.96 uIU/mL (0.32-4.0)
== END 2025-02-11 13:59 | disposition home or self-care (01) ==
LOC: HO.WFDLDS 13:58
PROVIDERS: Visit Provider Nurse Practitioner Family
DX: E06.3 Autoimmune thyroiditis (principal)
CPT/HCPCS: 36415; 84443

== ENCOUNTER 2025-05-12 15:23 | Outpatient (AMB) | payer OTHER, SELFPAY ==
--- NOTE | 2025-05-12 15:27 | MHC.PC.OV ---
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 PAP ? Tdap 07/09/2019 Specialists: E[facility] of [facility] for vertigo and tinnitus Neuro Ashu Al [facility] concern for MS? she needs to schedule f/u Optho Dr Elisabeth Morfin Counselor [facility] told of fibro dx no f/u scheduled Endo [facility] next appt 10/2024 manages thyroid Sleep Med Dr Narendra Newell 02/2025 Adult Neuro-Optho May 1109/03/24 biggest medical problem at this time is that of anisocoria, vertigo and headaches. She was in her normal state of health until February of 2024. Her right pupil is smaller than her left. She feels very dizzy when she was lying flat. If she gets up too quick she feels floaty an odd. When she moves her head and turns head specifically to the right she feels dizzy. She did see ENT for this. 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 However the symptoms that she has are different than this. She was referred to a neuro-breed to wean production technician by her primary breed to wean production technician. A workup was started. Ultimately an MRI of the cervical spine only to rule out tumor, spinal disease and carotid dissection, an MRA of the neck carotids and arch to rule out carotid dissection on the right, and a CTA of the brain especially right brainstem to the retro orbit and globes was ordered. For reasons discussed today at the visit they were not completed. Patient would like to pursue these images through primary care. 01/11/25 Telehealth visit today to review imaging to mallika R anisocoria, headache and dizziness - The patient is a 29-year-old female presenting with concerns regarding anisocoria and associated symptoms. - Noticed anisocoria in 2021, with past photographs indicating presence since 2020. - Imaging: Recent MRI of neck and cervical spine (normal), CTA of head (normal). 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 Wonders about harlequin syndrome during infancy, first 3 days after right side of body white , left side red. - Diagnostic Workup: MRI and CT for Estuardo's Syndrome, including brain and neck imaging. - Symptoms: Persistent headaches, vertigo, new swallowing difficulties, and eyelid asymmetry. - Thyroid Disorder: Ongoing management with endocrinological oversight. last visit 10/2024, reports tolerance and compliance w/ levothyroxine. Due for labs. Headaches come and go New c/o change in Ability to swallow, feels like it gets stuck, has to chug h20. Happens a few times per day. New in the last 8 months. Right eye lid, has lid lag. This is the same side as aniscoria. Also new. She wonders about labs repeat CBC Mag Phos B vitamins D TSH TWIN Assessment and Plan The 29-year-old female with a history of anisocoria presents with concerns primarily surrounding variable pupil size, now potentially associated with Estuardo's Syndrome. Imaging studies, including MRI of the neck and cervical spine, and CTA of the head displayed no significant findings. However, the patient's identification of potential undocumented sinus findings calls into question the comprehensiveness of her diagnostic evaluation. Symptoms of vertigo, headaches, swallowing difficulties, and eyelid asymmetry persist, potentially related to her past thyroid disorder. Further imaging review is necessary to ensure thorough assessment and clarify any diagnostic ambiguities. Reviewed labs from 03/2024 and 08/2024 all of which were normal except TSH and TWIN. No clinical need to repeat any additional labs as these have all been normal to date. 1. Estuardo's Syndrome Further imaging of thoracic regions is advised, with radiology input for comprehensive evaluation. Consideration of chest imaging to identify potential thoracic or pulmonary contributions. 2. Thyroid Disorder TSH level assessment is pending to correlate symptoms with thyroid function. She wonders about a posterior thyroid tumor causing her aniscoria and wants this to be looked at. 3. Anisocoria Right Anisocoria persists and imaging results show no critical findings to date, although patient-identified sinus concerns exist. A reevaluation of recent imaging is planned to specifically address potential sinus pathology. 4. Vestibular Dysfunction active w/ Neurology for recurring vertigo and headaches Plan: Re-read films. Eval sinuses, lungs, eval thyroid [facility] radiology phone# [phone]. Today: Did sleep study, AHI 5, mild JAMILA, CPAP ordered Has not started. Just got machine today This was done by Dr Newell. Consult note 02/2025 reviewed. Had consult w/ new functional med doc 04/2025, consult reviewed, confirmed bernie andrews r/t chronic cluster TRIVEDI Recommended to start venti mask of 02 as abortive EMG R done by Rheum + CTS Supportive care , no surgery at this time Mood is stable on current meds, active w/ counselor Taking levo. without change. Cont to have dizzy episodes, has one now, not using meclizine as not sure when to use it and not. In regards to the re-read of the films from the last visit, exhaustive efforts performed with no change. Pt made aware today. States she asked functional med MD about this who felt comfortable w/ initial read. Plan: Recommend cont JAMILA and CPAP w/ mgmt through Dr Newell Trial OTC O2 avail at [facility] to see if useful; if interseted in Rx see if Neuro Dr Al is able to accomodate; if not let me know Cont supportive care for CTS R Cont all meds and care w/ team Edu on use of meclizine RTO Sep/Oct CPE sooner prn Telehealth Attestation Documentation created based on verbal interaction through telehealth communication. Accuracy of documentation is affirmed. The patient has been explained that this is an interactive (audio/video) telehealth encounter and what that consists of. The patient understands and wishes to proceed. Interactivo platform was used. Total time spent caring for the patient today was 45 minutes. This includes time spent before the visit reviewing the chart, time spent during the visit, and time spent after the visit on documentation, reviewing laboratory results, diagnostic imaging, medications, performing a medically necessary evaluation, counseling on diagnoses, care coordination, ordering appropriate tests, ordering appropriate medications, review of tests performed by other providers, reporting test results with the patient, communication with other healthcare providers. [facility] Medical History (Updated 05/12/25 @ 15:41 by Nikki Slaughter [facility]) Anxiety Depression Bright's disease Headache Memory loss Sinusitis Vertigo Surgical History H/O section Family History Mother Diabetes Father Diabetes Thyroid disorder Maternal Grandfather HTN (hypertension) Hypercholesteremia Paternal Grandfather Prostate cancer Skin cancer Paternal Grandmother Breast cancer Other FHx: mental illness Substance use Social History Housing: House Patient Tobacco Use Status: Never used Tobacco e-Cigarette/Vaping Use: Never Used Second Hand Smoke Exposure: No service: No Current occupational status: other Current occupation: Stay at home mom Cognitive needs: No Hearing needs: No Vision needs: Yes (glasses) Questionnaire PHQ-9 Over the last 2 weeks, how often have you been bothered by any of the following problems? 1. Little interest or pleasure in doing things: several days 2. Feeling down, depressed, or hopeless: several days 3. Trouble falling or staying asleep, or sleeping too much: several days 4. Feeling tired or having little energy: more than half the days 5. Poor appetite or overeating: several days 6. Feeling bad about yourself - or that you are a failure or have let yourself or your family down: not at all 7. Trouble concentrating on things, such as reading the newspaper or watching television: more than half the days 8. Moving or speaking so slowly that other people could have noticed. Or the opposite - being so fidgety or restless that you have been moving around a lot more than usual: not at all 9. Thoughts that you would be better off or of hurting yourself in some way: not at all Total score: 8 Depression Screening Interpretation: Negative Depression Screening Done: Yes 23382 - PHQ-9 Billing: Yes Source: Developed by Drs. Gordon Harden, Vesna BNavneet Garcia and colleagues, with an educational miguel from [employer]. Thrive Questionnaire Date Thrive assessed: 01/10/25 AUDIT C Alcohol Use Questionnaire (AUDIT-C) 3. How often do you have six or more drinks on one occasion?: Never Total Score: 0 Score Reviewed/Action Taken: Yes VIANCA-7 AMB Questionnaire VIANCA-7 Date VIANCA - 7 assessed: 05/12/25 Feeling nervous, anxious, or on edge: 2 = More than half the days Not being able to stop or control worryin = Several days Worrying too much about different things: 1 = Several days Trouble relaxin = More than half the days Being so restless that it is hard to sit still: 2 = More than half the days Becoming easily annoyed or irritable: 1 = Several days Feeling afraid as if something awful might happen: 1 = Several days Total VIANCA-7 score (0-4 normal; 5-9 mild; 10-14 moderate; 15-21 severe): 10 Source: Developed by Drs. Gordon Harden, Navneet Faustin and colleagues, with an educational miguel from [employer]. VIANCA-7 Assessment Billing VIANCA-7 Assessment Tool: VIANCA-7 Assessment 97322 Physical exam (Primary Care) Tobacco/Smoking Status: Tobacco use Status Tobacco use date assessed 01/10/25 05/12/25 15:28 Patient Tobacco Use Status Never used Tobacco 05/12/25 15:28 e-Cigarette/Vaping Use Never Used 05/12/25 15:28 PHQ-9: PHQ-9 Score PHQ-9: Total score 8 05/12/25 15:47 Depression Screening Interpretation: Negative Thrive Assessment: Date of Thrive Assessment Date Thrive assessed 01/10/25 05/12/25 15:28 Telehealth Telehealth Telehealth Platform: [facility] Location of provider rendering services: practice address Location of patient: address on file Patient Identification confirmed using: Name, : Yes Telehealth method: voice only Patient verbally consented to treatment: Yes Patient verbally consented to billing insurance company: Yes Patient informed of any privacy concerns related to visit: Yes Minutes spent on Phone/Video with Pt.: 23 Coding Level of Care Code Tele Est Pt Level 5 (30352) Complex EM visit Add On G2211 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 Chronic cluster headache, not intractable G44.029 Headache chronicity pattern: chronic headache Intractability: not intractable Carpal tunnel syndrome, right upper limb G56.01 VIANCA (generalized anxiety disorder) F41.1 Mild episode of recurrent major depressive disorder F33.0 Major depression episode severity: mild Vertigo R42 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 Anisocoria H57.02 Positive TWIN (antinuclear antibody) R76.8 JAMILA (obstructive sleep apnea) G47.33 Additional Codes VIANCA-7 Assessment Billing - VIANCA-7 Assessment Tool: VIANCA-7 Assessment 94209 ([id number]) PHQ-9 - 48532 - PHQ-9 Billing: Yes ([id number]) Assessment & Plan Assessment & Plan (1) Estuardo syndrome: Comment: mild on R Code(s): G90.2 - Estuardo's syndrome Category: Medical (2) Cluster headache: Code(s): G44.009 - Cluster headache syndrome, unspecified, not intractable Category: Medical Qualifiers: Headache chronicity pattern: chronic headache Intractability: not intractable Qualified Code(s): G44.029 - Chronic cluster headache, not intractable (3) Carpal tunnel syndrome, right upper limb: Onset Date: ~2024 Comment: Rheum No surgery; Supportive care w/ brace Code(s): G56.01 - Carpal tunnel syndrome, right upper limb Category: Medical (4) VIANCA (generalized anxiety disorder): Code(s): F41.1 - Generalized anxiety disorder Category: Medical (5) MDD (major depressive disorder), recurrent episode: Code(s): F33.9 - Major depressive disorder, recurrent, unspecified Category: Medical Qualifiers: Major depression episode severity: mild Qualified Code(s): F33.0 - Major depressive disorder, recurrent, mild (6) Vertigo: Comment: Saw ENT. Also with tinnitus. Can be unilateral but changes or bilateral Code(s): R42 - Dizziness and giddiness Category: Medical (7) Bright's disease: Comment: monitor TSH Code(s): E06.3 - Autoimmune thyroiditis Category: Medical (8) Anisocoria: Comment: R<L Code(s): H57.02 - Anisocoria Category: Medical (9) Positive TWIN (antinuclear antibody): Code(s): R76.8 - Other specified abnormal immunological findings in serum Category: Medical (10) JAMILA (obstructive sleep apnea): Onset Date: ~03/2025 Comment: sleep study + 03/2025 at [facility] see scanned doc recommended cpap Code(s): G47.33 - Obstructive sleep apnea (adult) (pediatric) Category: Medical Plan . Medications: Changed From buspirone 10 mg PO TID 90 tabs 3RF To buspirone 10 mg PO .QD 90 tabs 3RF
== END 2025-05-12 16:28 | disposition home or self-care (01) ==
LOC: HO.HMCFM 15:23
PROVIDERS: PCP Nurse Practitioner Family; Visit Provider Nurse Practitioner Family
DX: G90.2 Horner's syndrome (principal); G44.029 Chronic cluster headache, not intractable; G56.01 Carpal tunnel syndrome, right upper limb; F41.1 Generalized anxiety disorder; F33.0 Major depressive disorder, recurrent, mild; R42 Dizziness and giddiness; E06.3 Autoimmune thyroiditis; H57.02 Anisocoria; R76.8 Other specified abnormal immunological findings in serum; G47.33 Obstructive sleep apnea (adult) (pediatric)

== ENCOUNTER → 2025-05-12 15:23 | Outpatient (BNVA) | payer OTHER, SELFPAY | PROVIDERS: PCP Nurse Practitioner Family; Visit Provider Nurse Practitioner Family | DX: G90.2 Horner's syndrome (principal); H57.02 Anisocoria; G44.029 Chronic cluster headache, not intractable; G56.01 Carpal tunnel syndrome, right upper limb; F41.1 Generalized anxiety disorder; F33.0 Major depressive disorder, recurrent, mild; E06.3 Autoimmune thyroiditis; R76.8 Other specified abnormal immunological findings in serum; G47.33 Obstructive sleep apnea (adult) (pediatric) | CPT/HCPCS: 96127 ==

== ENCOUNTER 2025-06-24 08:18 | Outpatient (AMB) | payer OTHER, SELFPAY ==
--- OUTSIDE RECORDS SUMMARY | 2025-06-22 23:59 | XMS_ITS | Continuity of Care Document ---
Author Organization [facility] Address [address] [place] [id number]- Care Team Providers Care Neonatal Icu Coordinator Name Role Phone Nikki Park NP Primary Care Physician [phone] [id number] Date(s): 05/23/25 - 06/22/[address] [id number] Encounter Type: Triage Allergies, Adverse Reactions, Alerts No Known Allergies Medications levothyroxine 0.088 mg oral tablet See Instructions, 1 tablet By Mouth 5 days weekly and 2 tabs 2 days weekly, # 117 each, 3 Refills, 07/06/24 3:35:00 PM EDT, [id number], Patient requires bolt loader: Mylan, 158, cm, 05/07/24 14:15:00 EDT, Height Start Date: 07/06/24 Status: Ordered Quantity: 117.0 Unit: each Repeat number: 4 Problem List Condition Confirmation Course Effective Dates Status Health St atus Informant Obesity (BMI 30-39.9) Confirmed Active Hypothyroid Confirmed Active Obese class II Confirmed Active Rubella non-immune Confirmed Active Spotting in Confirmed Active Social History Social History Type Response Smoking Status Never (less than 100 in lifetime); Tobacco user in household: No entered on: 09/15/20 Sex Sex Representation Female (finding) Patient Care team information Care Team Personnel Name: Leora Phillips RN Position: [facility]EE RN Member Role: Primary Care Nurse Name: Nikki Park NP Position: [facility] Outreach Member Role: PCP Address: [address] [place] [address]- Telecom: Care Team Related Persons Name: RCIK PEPPER Name: CONNIE PEPPER Name: RENETTA DOYLE Name: SHERI DOYLE Name: RENETTA, DEFAULTED Name: GWEN PATRICIA Insurance Providers Guarantor name[facility] Plan Information #: 1 Payer: [facility] Payer Identifier: NA Member Number: [id number] Group Number: [id number] Subscriber Identifier: [id number] Relationship to Subscriber: self Coverage Type: NA Coverage Verification Date: NA Telecom: NA Address:
--- NOTE | 2025-06-24 14:25 | MHC.PC.OV ---
Intake Visit Reasons: review CT scan results Intake Note: Telehealth to review CT scan results. Manager Corporate Marketing Required: No Allergies No Known Allergies Allergy (Verified 06/24/25 14:25) Tobacco use date assessed: 06/24/25 Dental Screening Dental Screen Date: 06/24/25 Did you have a dental visit in the last 12 months?: Yes Did you have a dental problem in the last 6 months where you did not have access to dental care?: No Was dental information given to patient?: Patient has dentist HPI HPI Comments History of Present Illness Details 30 y/o F telehealth visit for williams neuroma dx at [facility] started after wearing heels at [facility] a few months ago prescribed melxicam for 10 days wonders if can take aleve for migraines while on this she was given info about proper footwear plan advised to avoid nsaids while using meloxicam ok for excedrin or apap use of 02 ok too ensure proper footwear Rto as scheduled or sooner as needed Telehealth Attestation The patient has been explained that this is an interactive (audio/video) telehealth encounter and what that consists of. The patient understands and wishes to proceed. Composeright platform was used. Total time spent caring for the patient today was 15 minutes. This includes time spent before the visit reviewing the chart, time spent during the visit, and time spent after the visit on documentation, reviewing laboratory results, diagnostic imaging, medications, performing a medically necessary evaluation, counseling on diagnoses, care coordination, ordering appropriate tests, ordering appropriate medications, review of tests performed by other providers, reporting test results with the patient, communication with other healthcare providers. [facility] Medical History (Updated 06/24/25 @ 14:33 by Nikki Slaughter, [facility]) Anxiety Depression Bright's disease Headache Memory loss Sinusitis Vertigo Surgical History H/O section Family History Mother Diabetes Father Diabetes Thyroid disorder Maternal Grandfather HTN (hypertension) Hypercholesteremia Paternal Grandfather Prostate cancer Skin cancer Paternal Grandmother Breast cancer Other FHx: mental illness Substance use Social History Housing: House Patient Tobacco Use Status: Never used Tobacco e-Cigarette/Vaping Use: Never Used Second Hand Smoke Exposure: No service: No Current occupational status: other Current occupation: Stay at home mom Cognitive needs: No Hearing needs: No Vision needs: Yes (glasses) Questionnaire Thrive Questionnaire Date Thrive assessed: 01/10/25 VIANCA-7 AMB Questionnaire VIANCA-7 Date VIANCA - 7 assessed: 05/12/25 Source: Developed by Drs. Gordon Harden, Vesna Medeiros, Navneet Gomez and colleagues, with an educational miguel from [employer]. Physical exam (Primary Care) Tobacco/Smoking Status: Tobacco use Status Tobacco use date assessed 06/24/25 06/24/25 14:26 Patient Tobacco Use Status Never used Tobacco 06/24/25 14:26 e-Cigarette/Vaping Use Never Used 06/24/25 14:26 Thrive Assessment: Date of Thrive Assessment Date Thrive assessed 01/10/25 06/24/25 14:26 Telehealth Telehealth Telehealth Platform: [facility] Location of provider rendering services: practice address Location of patient: address on file Patient Identification confirmed using: Name, : Yes Telehealth method: voice only Patient verbally consented to treatment: Yes Patient verbally consented to billing insurance company: Yes Patient informed of any privacy concerns related to visit: Yes Minutes spent on Phone/Video with Pt.: 7 Coding Level of Care Code Tele Est Pt Level 2 (65268) Complex EM visit Add On G2211 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 Laterality: right Chronic cluster headache, not intractable G44.029 Headache chronicity pattern: chronic headache Intractability: not intractable Assessment & Plan Assessment & Plan (1) [place] neuroma: Code(s): G57.60 - Lesion of plantar nerve, unspecified lower limb Category: Medical Qualifiers: Laterality: right Qualified Code(s): G57.61 - Lesion of plantar nerve, right lower limb (2) Cluster headache: Code(s): G44.009 - Cluster headache syndrome, unspecified, not intractable Category: Medical Qualifiers: Headache chronicity pattern: chronic headache Intractability: not intractable Qualified Code(s): G44.029 - Chronic cluster headache, not intractable Plan .
== END 2025-06-24 14:42 | disposition home or self-care (01) ==
LOC: HO.HMCFM 08:18
PROVIDERS: PCP Nurse Practitioner Family; Visit Provider Nurse Practitioner Family
DX: G57.61 Lesion of plantar nerve, right lower limb (principal); G44.029 Chronic cluster headache, not intractable

== ENCOUNTER 2025-10-18 09:26 | Outpatient (AMB) | payer OTHER, SELFPAY ==
--- NOTE | 2025-10-18 09:28 | A.OFFPC_ITS ---
Vital Signs 10/18/25 09:34 Height 5 ft 1 in Weight 163 lb 4 oz BMI 30.8 BP 117/55 L Blood Pressure Location Lt brachial Position Sitting Respiration 16 Pulse 68 Pulse Source Pulse Oximeter Temp 97.8 F Temp Source Oral Pulse Oximetry (%) 99 Oxygen Delivery Method Room Air Intake Visit Reasons: CPE end of the year sep/oct Intake Note: patient here for CPE Crew Director Required: No Is last menstrual period known: Yes Last menstrual period: 10/01/25 Post menopausal: No Patient : No Allergies No Known Allergies Allergy (Verified 10/18/25 09:59) Medication List - Last Reconciled 10/18/25 by Nikki Slaughter, TALENT ACQUISITION PROGRAM MANAGER- buspirone 10 mg PO TID 90 days levothyroxine 88 mcg PO DAILY meclizine 25 mg PO BID PRN 30 days meloxicam 15 mg PO DAILY PRN Tobacco use date assessed: 10/18/25 Dental Screening Dental Screen Date: 10/18/25 Did you have a dental visit in the last 12 months?: Yes Did you have a dental problem in the last 6 months where you did not have access to dental care?: No Was dental information given to patient?: Patient has dentist HPI HPI Comments History of Present Illness Details Mary Kay 30 year old female with VIANCA, MDD, hypothyroid, Right aniscoria d/t Horners Syndrome , + TWIN, Cluster headaches, JAMILA not on CPAP, + R CTS, Mortons Neuroma, s/p c section, tooth extraction 08/2025 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 Optho Dr Elisabeth Morfin Counselor [facility] told of fibro dx no f/u scheduled Endo [facility] next appt manages thyroid Sleep Med Dr Narendra [facility] Neuro-Optho History of Present Illness The patient is a 30 year old individual presenting for a complete physical exam. Anxiety, Depression, and Obsessive-Compulsive Disorder: - The patient has a history of anxiety a nd depression, for which the patient takes buspirone. - The patient's counselor believes the p atient has OCD. - The patient describes ruminating thoug hts, which were previously chaotic but have become more structured since starting anxiety medication. - There is hesitation to start new medic ations like Prozac due to concerns about side effects, though the patient has not had intolerances to medications in the past. - The patient reports feeling like crap all the time and experiences increased tearfulness, though attributes this to being better able to articulate feelings rather than worsened anxiety. Obstructive Sleep Apnea: - The patient has a diagnosis of obstruc tive sleep apnea and was prescribed a CPAP machine. - The patient was intolerant to CPAP, ex periencing a panic attack and a feeling of being overwhelmed, and subsequently returned the device after several days of use. - The patient is a mouth breather and wa s told a nasal mask might not be effective. England's Neuroma: - The patient has England's neuroma, whic h flares up intermittently. - The patient takes meloxicam as needed during flare-ups for about 10 days at a time and notes feeling amazing overall when taking it consistently for a few weeks. - The patient has not yet purchased shoe s that fit better to help manage the condition. 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 - The condition is considered stable and unlikely to resolve. - The patient has an oxygen tank at home , prescribed by neurology, and uses it for cluster headache flare-ups. Hypothyroidism: - The patient has a history of hypothyro idism, takes levothyroxine, and is managed by an shoeshiner. Obesity: - The patient has obesity with a BMI of 30.8. - The patient reports unintentional weig ht loss, which may be related to consistent medication use and lower stress levels. - The patient reports eating normally an d cooks frequently, avoiding salt due to the 's high blood pressure. Concern for Mold Exposure: - The patient is concerned about a spot of potential mold on the wall of a storage area in the apartment. - The patient has lived in the apartment for 7-8 years and feels that general symptoms of feeling unwell have worsened since having a child four years ago. 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 Social History - Housing: The patient lives in an apart ment and is concerned about potential mold exposure in a storage area. - Family status: The patient has a 4-yea r-old son. - Family planning: The patient has no pl ans to have more children. - Nutrition: The patient reports cooking meals at home, avoiding excess salt, and using natural spices. Health Maintenance - Ordered labs including thyroid panel, iron, cortisol, vitamin D, CMP, and magnesium. - Advised to schedule a follow-up appoin tment in one year for an annual physical. Review of Systems - General: Reports feeling unwell ( like crap ) all the time. - Constitutional: Reports unintentional weight loss. - Psychiatric: Reports anxiety, depressi on, and obsessive-compulsive traits such as ruminating and requiring structure. - Neurological: Reports a history of clu ster headaches. - Skin: Reports hair loss on the sides o f the head and dryness/thickening of the skin on one foot. - Genitourinary: Denies urinary issues. - Endocrine: Reports regular menses. - Gastrointestinal: Reports normal bowel movements. Physical Exam General: Well developed, well nourished, in no acute distress. Appears stated age. Obesity with a BMI of 40.8. Head: Normocephalic, atraumatic. 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 Eyes: Pupils are equal, round and reactive to light and accommodation. Conjunctivae are clear. Scleras nonicteric bilat. Vision grossly normal. Ears: TMs clear AU, EACS WNL Nose: Patent, without discharge. Neck: No carotid bruit bilat. Supple, no adenopathy or thyromegaly. Breast: Edu on SBE Lungs: Clear to auscultation bilaterally. No rales, rhonchi or wheeze noted. Good air flow in all ann. Heart: Regular rate and rhythm. No murmurs, click, rubs or gallops are noted. Abdomen: Bowel sounds present in all quadrants. The abdomen is soft, nontender, with no masses or organomegaly noted. No hernias are noted. : Deferred. Reviewed recommendations for routine [employer] DEAN Pulses: Peripheral pulses are equal and palpable bilaterally. Extremities: No clubbing, cyanosis nor edema is noted. England's neuroma present. Neurologic: Gait and station normal. Cranial Nerves 2-12 intact. Motor strength grossly symmetrical and intact. No sensory loss. Balance normal. Skin: No rashes, ulcers, or lesions noted. Turgor is good. Skin color is good. Hair and nails are without abnormalities. Fungal rash to L foot and 4th toe nail L foot. Psych: Normal eye contact, affect and mood appropriate, and normal interactions. Patient is alert and appropriate to context. History of anxiety and depression, currently managed with buspirone. Possible OCD tendencies discussed. Results Pending Medical Decision Making The patient is a 30-year-old individual presenting for a complete physical exam with multiple chronic conditions and new concerns. The patient's primary concerns revolve around mental health, including anxiety, depression, and OCD- like tendencies such as ruminating thoughts. Given the patient's hesitation toward new medications due to perceived side effects, [employer] genetic testing was ordered to provide data-driven guidance for selecting an effective psychotropic medication. This will help identify appropriate treatments, such as Prozac, which has shown efficacy for OCD, and potentially offer alternatives for the patient's current anxiety medication, buspirone. The patient's concern about mold exposure as a contributor to a general feeling of malaise was addressed. Since testing is not available in our facility, a verbal referral was provided to a local functional medicine nurse practitioner for further evaluation, Joanna Toro. The patient remains non-adherent to CPAP therapy for obstructive sleep apnea due to associated anxiety, which presents an ongoing health risk, but the patient is not ready to revisit treatment at this time. Physical exam findings were notable for signs of tinea pedis, for which xhrs-vko-zyqqctp and natural remedies were recommended. Management of England's neuroma with as-needed meloxicam and exploration of natural anti-inflammatories was discussed. Routine labs, including a thyroid panel, iron, cortisol, vitamin D, CMP, and magnesium, were ordered to screen for other potential causes of the patient's symptoms. Plan 1. Anxiety And Obsessive-Compulsive Diso rder Tendencies - Ordered [employer] genetic testing to emigdio wagner pharmacotherapy for psychotropic medications. - Discussed Prozac (fluoxetine) as a wel l-researched, effective option for OCD with a low side-effect profile. - Will schedule a follow-up visit to rev iew GeneSight results and decide on medication management. 2. Obstructive Sleep Apnea - The patient is intolerant to CPAP ther apy due to anxiety and panic attacks. - The patient will defer retrying CPAP o r alternative masks until the patient feels more emotionally stable. 3. Concern For Mold Exposure - Provided a verbal referral to Joanna gagnon, a local functional medicine nurse practitioner, for evaluation of possible mold exposure, as testing is not available in-house. 4. England's Neuroma - Continue using meloxicam as needed for flare-ups. - Encouraged to incorporate natural anti -inflammatory foods or spices, such as turmeric, into the diet. 5. Tinea Pedis - Recommended a trial of tycj-tsl-dqlxco r antifungal cream (e.g., Lamisil). - Discussed alternative treatments, incl uding Vicks VapoRub, tea tree oil, and white vinegar soaks. 6. Cluster Headaches - Continue using the prescribed home oxy gen tank as needed for cluster headache episodes. Patient Instructions - Complete the [employer] genetic testing kit by providing a saliva sample and mailing it in. You will be contacted about the cost, which may range from $0 to $300. - Go to the lab today to have your blood drawn for the ordered tests. - For the suspected fungus on your foot, use an vcto-pug-crrnolt antifungal cream like Lamisil consistently. You can also try home remedies such as Vicks VapoRub, tea tree oil, or soaking your feet in a basin with white vinegar during your shower. - If you are interested in being tested for mold exposure, you can contact the local practitioner Joanna Toro. - Continue to take your current medicati ons as prescribed. We will schedule a follow-up appointment to discuss your GeneSight results and decide on any medication changes. - Schedule your next annual physical exa m for one year from now. Consent I discussed [employer] genetic testing with the patient. I explained that the test involves a saliva swab and is used to help determine which psychotropic medications may be most effective. The potential costs were reviewed, with the patient understanding that the maximum loa-mo-mbumgc expense is $300, but that it could be less or $0 depending on insurance coverage and financial assistance programs. The patient expressed understanding and provided verbal consent to proceed with the test, pending review of the final cost. Patient was informed and verbally consented to the use of an ambient scribe for clinic note documentation during this visit. An [id number] minutes was spent addressing the problem(s) noted at todays visit. This includes time spent before the visit reviewing the chart, time spent during the visit, and time spent after the visit on documentation reviewing laboratory results, diagnostic imaging, medications, performing a medically necessary evaluation, counseling on diagnoses, care coordination, ordering appr opriate tests, ordering appropriate medications, review of tests performed by other providers, reporting test results with the patient, communication with other healthcare providers. [facility] Medical History Depression Anxiety Vertigo Memory loss Headache Bright's disease Sinusitis Surgical History H/O section Family History Mother Diabetes Father Diabetes Thyroid disorder Maternal Grandfather HTN (hypertension) Hypercholesteremia Paternal Grandfather Prostate cancer Skin cancer Paternal Grandmother Breast cancer Other FHx: mental illness Substance use Social History Housing: House Patient Tobacco Use Status: Never used Tobacco e-Cigarette/Vaping Use: Never Used Second Hand Smoke Exposure: No service: No Current occupational status: other Current occupation: Stay at home mom Cognitive needs: No Hearing needs: No Vision needs: Yes (glasses) Female Reproductive History Menstrual Date of last menstrual period: 10/01/25 Questionnaire PHQ-9 Over the last 2 weeks, how often have you been bothered by any of the following problems? 1. Little interest or pleasure in doing things: not at all 2. Feeling down, depressed, or hopeless: not at all 3. Trouble falling or staying asleep, or sleeping too much: not at all 4. Feeling tired or having little energy: not at all 5. Poor appetite or overeating: not at all 6. Feeling bad about yourself - or that you are a failure or have let yourself or your family down: not at all 7. Trouble concentrating on things, such as reading the newspaper or watching television: not at all 8. Moving or speaking so slowly that other people could have noticed. Or the opposite - being so fidgety or restless that you have been moving around a lot more than usual: not at all 9. Thoughts that you would be better off or of hurting yourself in some way: not at all Total score: 0 Depression Screening Interpretation: Negative Depression Screening Done: Yes 68443 - PHQ-9 Billing: Yes Source: Developed by Drs. Gordon Harden, Vesna Medeiros, Navneet Gomez and colleagues, with an educational miguel from [employer]. Thrive Questionnaire Date Thrive assessed: 10/18/25 I am a: Patient What is your living situation today?: I choose not to answer this question Within the past 12 months, did the food you bought not last and you didn't have the money to get more?: I choose not to answer this question Within the past 12 months, did you worry whether your food would run out before you got money to buy more?: I choose not to answer this question Do you have trouble paying for medicines?: I choose not to answer this question Do you have trouble getting transportation to medical appointments?: I choose not to answer this question Do you have trouble paying your heating and electricity bill?: I choose not to answer this question Do you have trouble taking care of your child, family member or friend?: I choose not to answer this question Do you have trouble with day-to-day activities such as bathing, preparing meals, shopping, managing finances, etc.?: I choose not to answer this question Are you currently unemployed and looking for a job?: I choose not to answer this question Are you interested in more education?: I choose not to answer this question Please select the resources that you would like help with: None Currently or been in a relationship where the following occur: I choose not to answer THRIVE Score: 0 AUDIT C Alcohol Use Questionnaire (AUDIT-C) 1. How often do you have a drink containing alcohol?: Never 3. How often do you have six or more drinks on one occasion?: Never Total Score: 0 Score Reviewed/Action Taken: Yes VIANCA-7 AMB Questionnaire VIANCA-7 Date VIANCA - 7 assessed: 10/18/25 Feeling nervous, anxious, or on edge: 0 = Not at all Not being able to stop or control worryin = Not at all Worrying too much about different things: 0 = Not at all Trouble relaxin = Not at all Being so restless that it is hard to sit still: 0 = Not at all Becoming easily annoyed or irritable: 0 = Not at all Feeling afraid as if something awful might happen: 0 = Not at all Total VIANCA-7 score (0-4 normal; 5-9 mild; 10-14 moderate; 15-21 severe): 0 Source: Developed by Drs. Gordon Harden, Vesna Medeiros, Navneet Gomez and colleagues, with an educational miguel from [employer]. VIANCA-7 Assessment Billing VIANCA-7 Assessment Tool: VIANCA-7 Assessment 24877 Physical exam (Primary Care) Vital Signs: Last Vital Signs Temp 97.8 F 10/18/25 09:34 Pulse 68 10/18/25 09:34 Resp 16 10/18/25 09:34 BP 117/55 L 10/18/25 09:34 Pulse Ox 99 10/18/25 09:34 Oxygen Delivery Method Room Air 10/18/25 09:34 BMI result Body Mass Index 30.8 Tobacco/Smoking Status: Tobacco use Status Tobacco use date assessed 10/18/25 10/18/25 09:34 Patient Tobacco Use Status Never used Tobacco 10/18/25 09:30 e-Cigarette/Vaping Use Never Used 10/18/25 09:30 PHQ-9: PHQ-9 Score PHQ-9: Total score 0 10/18/25 09:36 Depression Screening Interpretation: Negative Thrive Assessment: Date of Thrive Assessment Date Thrive assessed 10/18/25 10/18/25 09:34 Currently or been in a relationship where the following occur: I choose not to answer Coding Level of Care Code Est Pt Level 2 (87817) Est Pt Prev Care 18-39y(41246) Diagnoses Adult general medical exam Z00.00 VIANCA (generalized anxiety disorder) F41.1 Mild episode of recurrent major depressive disorder F33.0 Major depression episode severity: mild 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 (antinuclear antibody) R76.8 Anisocoria H57.02 Estuardo syndrome G90.2 England's neuroma of right foot G57.61 Laterality: right JAMILA (obstructive sleep apnea) G47.33 Laboratory exam ordered as part of routine general medical examination Z00.00 Influenza vaccination declined Z28.21 Chronic cluster headache, not intractable G44.029 Headache chronicity pattern: chronic headache Intractability: not intractable OCD (obsessive compulsive disorder) F42.9 Additional Codes VIANCA-7 Assessment Billing - VIANCA-7 Assessment Tool: VIANCA-7 Assessment 55096 ([id number]) PHQ-9 - 12733 - PHQ-9 Billing: Yes ([id number]) Assessment & Plan Assessment & Plan (1) Adult general medical exam: Onset Date: ~10/18/25 Code(s): Z00.00 - Encounter for general adult medical examination without abnormal findings Category: Medical (2) VIACNA (generalized anxiety disorder): Code(s): F41.1 - Generalized anxiety disorder Category: Medical (3) MDD (major depressive disorder), recurrent episode: Code(s): F33.9 - Major depressive disorder, recurrent, unspecified Category: Medical Qualifiers: Major depression episode severity: mild Qualified Code(s): F33.0 - Major depressive disorder, recurrent, mild (4) Bright's disease: Comment: monitor TSH Code(s): E06.3 - Autoimmune thyroiditis Category: Medical (5) Positive TWIN (antinuclear antibody): Code(s): R76.8 - Other specified abnormal immunological findings in serum Category: Medical (6) Anisocoria: Comment: R<L Code(s): H57.02 - Anisocoria Category: Medical (7) Estuardo syndrome: Comment: mild on R Code(s): G90.2 - Estuardo's syndrome Category: Medical (8) England neuroma: Code(s): G57.60 - Lesion of plantar nerve, unspecified lower limb Category: Medical Qualifiers: Laterality: right Qualified Code(s): G57.61 - Lesion of plantar nerve, right lower limb (9) JAMILA (obstructive sleep apnea): Onset Date: ~03/2025 Comment: sleep study + 03/2025 at [facility] see scanned doc recommended cpap Could not tolerate CPAP so returned Code(s): G47.33 - Obstructive sleep apnea (adult) (pediatric) Category: Medical (10) Laboratory exam ordered as part of routine general medical examination: Code(s): Z00.00 - Encounter for general adult medical examination without abnormal findings Category: Medical (11) Influenza vaccination declined: Onset Date: ~10/18/25 Code(s): Z28.21 - Immunization not carried out because of patient refusal Category: Medical (12) Cluster headache: Code(s): G44.009 - Cluster headache syndrome, unspecified, not intractable Category: Medical Qualifiers: Headache chronicity pattern: chronic headache Intractability: not intractable Qualified Code(s): G44.029 - Chronic cluster headache, not intractable (13) OCD (obsessive compulsive disorder): Code(s): F42.9 - Obsessive-compulsive disorder, unspecified Category: Medical Plan . Orders: Orders Magnesium Today E06.3 - Autoimmune thyroiditis, Z00.00 - Encounter for general adult medical examination without abnormal findings Ferritin Today E06.3 - Autoimmune thyroiditis, Z00.00 - Encounter for general adult medical examination without abnormal findings Comprehensive Met. Panel Today E06.3 - Autoimmune thyroiditis, Z00.00 - Encounter for general adult medical examination without abnormal findings Vitamin D 25-OH Total Today E06.3 - Autoimmune thyroiditis, Z00.00 - Encounter for general adult medical examination without abnormal findings Cortisol Random Today E06.3 - Autoimmune thyroiditis, Z00.00 - Encounter for general adult medical examination without abnormal findings IRON PROFILE Today E06.3 - Autoimmune thyroiditis, Z00.00 - Encounter for general adult medical examination without abnormal findings TSH reflex Free T4 Today E06.3 - Autoimmune thyroiditis, Z00.00 - Encounter for general adult medical examination without abnormal findings Patient Instructions: Health screenings for women You should visit your health care provider from time to time, even if you are healthy. The purpose of these visits is to: Screen for medical issues Assess your risk for future medical problems Encourage a healthy lifestyle Update vaccinations and other preventive care services Help you get to know your provider in case of an illness Information Even if you feel fine, you should still see your provider for regular checkups. These visits can help you avoid problems in the future. For example, the only way to find out if you have high blood pressure is to have it checked regularly. High blood sugar and high cholesterol levels also may not have any symptoms in the early stages. A simple blood test can check for these conditions. There are specific times when you should see your provider or receive specific health screenings. The [place] Preventive Services Task Force publishes a list of recommended screenings. Below are screening guidelines for women ages 18 to 39. BLOOD PRESSURE SCREENING Your blood pressure should be checked at least once every 3 to 5 years if: Your blood pressure is in the normal range (top number less than 120 mm Hg and bottom number less than 80 mm Hg) You don't have risk factors for high blood pressure Ask your provider if you need your blood pressure checked more often if: The top number is 120 to 129 mm Hg or the bottom number is 70 to 79 mm Hg You have diabetes, heart disease, kidney problems, are overweight, or have certain other health conditions You have a first-degree relative with high blood pressure You are Black You had high blood pressure during a If the top number is 130 mm Hg or greater or the bottom number is 80 mm Hg or greater, this is considered stage 1 hypertension. Schedule an appointment with your provider to learn how you can reduce your blood pressure. Watch for blood pressure screenings in your area. Ask your provider if you can stop in to have your blood pressure checked. BREAST CANCER SCREENING Experts do not agree about the benefits of breast self-exams in finding breast cancer or saving lives. Talk to your provider about what is best for you. A screening mammogram is not recommended for most women under age 40. Your provider may discuss and recommend mammograms, MRI scans, or ultrasounds if you have an increased risk for breast cancer, such as: A mother or sister who had breast cancer at a young age (most often starting screening earlier than the age the close relative was diagnosed) You carry a high-risk genetic marker CERVICAL CANCER SCREENING Cervical cancer screening should start at age 21 years unless your provider advises otherwise. After the first test: Women ages 21 through 29 should have a Pap test every 3 years. Exoprts do not agree on whether HPV testing is recommended for this age group. Women ages 30 through 65 should be screened with either a Pap test every 3 years or the HPV test every 5 years or both tests every 5 years (called cotesting ). Women who have been treated for precancer (cervical dysplasia) should continue to have Pap tests for 20 years after treatment or until age 65, whichever is longer. If you have had your uterus and cervix removed (total hysterectomy), and you have not been diagnosed with cervical cancer or precancer (high grade cervical neoplasia), you do not need cervical cancer screening. CHOLESTEROL SCREENING Cholesterol screening should begin at: Age 45 for women with no known risk factors for coronary heart disease Age 20 for women with known risk factors for coronary heart disease Repeat cholesterol screening should take place: Every 5 years for women with normal cholesterol levels More often if changes occur in lifestyle (including weight gain and diet) More often if you have diabetes, heart disease, kidney problems, or certain other conditions DIABETES SCREENING You should be screened for diabetes starting at age 35 and then repeated every 3 years if you have no risk factors for diabetes. Screening may need to start earlier and be repeated more often if you have other risk factors for diabetes, such as: You have a first degree relative with diabetes. You are overweight or have obesity. You have high blood pressure, prediabetes, or a history of heart disease. Screening for diabetes should be done if you are planning to become and you are overweight and have other risk factors such as high blood pressure. DENTAL EXAM Go to the dentist once or twice every year for an exam and cleaning. Your dentist will evaluate if you need more frequent visits. EYE EXAM Have an eye exam every 5 to 10 years before age 40. If you have vision problems, have an eye exam every 2 years or more often if recommended by your provider. You should have an eye exam that includes an examination of your retina (back of your eye) at least every year if you have diabetes. IMMUNIZATIONS Commonly needed vaccines include: Flu shot: get one every year. COVID-19 vaccine: ask your provider what is best for you. Tetanus-diphtheria and acellular pertussis (Tdap) vaccine: have one at or after age 19 as one of your tetanus-diphtheria vaccines if you did not receive it as an adolescent. Tetanus-diphtheria: have a booster (or Tdap) every 10 years. Varicella vaccine: receive 2 doses if you never had chickenpox or the varicella vaccine. Hepatitis B vaccine: receive 2, 3, or 4 doses, depending on your exact circumstances. Measles, mumps, and rubella (MMR) vaccine: receive 1 to 2 doses if you are not already immune to MMR. Your provider can tell you if you are immune. Ask your provider about the human papillomavirus (HPV) vaccine if: You have not received the HPV vaccine in the past You have not completed the full vaccine series (you should catch up on this shot) Ask your provider if you should receive other immunizations if you have certain health problems that increase your risk for some diseases such as pneumonia. INFECTIOUS DISEASE SCREENING Women who are sexually active should be screened for chlamydia and gonorrhea up until age 25. Women 25 years and older should be screened for chlamydia and gonorrhea if at high risk. Screening for hepatitis C: All adults ages 18 to 79 should get a one-time test for hepatitis C. people should be screened at every . Screening for human immunodeficiency virus (HIV): All people ages 15 to 65 should get a one-time test for HIV. Depending on your lifestyle and medical history, you may also need to be screened for infections such as syphilis and HIV, as well as other infections. PHYSICAL EXAM All adults should visit their provider from time to time, even if they are healthy. The purpose of these visits is to: Screen for disease Assess your risk of future medical problems Encourage a healthy lifestyle Update your vaccinations and other preventive care services Maintain a relationship with a provider in case of an illness Your height, weight, and BMI should be checked at every exam. During your exam, your provider may ask you about: Depression and anxiety Diet and exercise Alcohol and tobacco use Safety issues, such as using seat belts, smoke detectors, and intimate partner violence Your medicines and risk for interactions SKIN SELF-EXAM Your provider may check your skin for signs of skin cancer, especially if you're at high risk, such as if you: Have had skin cancer before Have close relatives with skin cancer Have a weakened immune system OTHER SCREENING Talk with your provider about colon cancer screening if you have a strong family history of colon cancer or polyps, or if you have had inflammatory bowel disease or polyps yourself. Routine bone density screening of women under 40 is not recommended.
[2025-10-18 09:34] VITALS: BP 117/55; PULSE 68; RESP 16; TEMP 36.6; O2SAT 99; BMI 30.8
== END 2025-10-18 10:12 | disposition home or self-care (01) ==
LOC: HO.HMCFM 09:27
PROVIDERS: PCP Nurse Practitioner Family; Visit Provider Nurse Practitioner Family
DX: Z00.00 Encounter for general adult medical examination without abnormal findings (principal); F41.1 Generalized anxiety disorder; F33.0 Major depressive disorder, recurrent, mild; E06.3 Autoimmune thyroiditis; R76.89 Other specified abnormal immunological findings in serum; H57.02 Anisocoria; G90.2 Horner's syndrome; G57.61 Lesion of plantar nerve, right lower limb; G47.33 Obstructive sleep apnea (adult) (pediatric); G44.029 Chronic cluster headache, not intractable; F42.9 Obsessive-compulsive disorder, unspecified; Z28.21 Immunization not carried out because of patient refusal

== ENCOUNTER 2025-10-18 09:26 | Outpatient (REF) | payer OTHER, SELFPAY ==
[2025-10-18 15:23] LABS: Alanine Aminotransferase 13 U/L (0-31); Albumin Level 4.5 g/dL (3.5-5.0); Alkaline Phosphatase 63 U/L (39-117); Anion Gap 12 (12-20); Aspartate Amino Transferase 24 U/L (5-31); Blood Urea Nitrogen 12 mg/dL (9-16); Calcium 9.1 mg/dL (8.4-10.2); Carbon Dioxide 26 mmol/L (22-29); Chloride 106 mmol/L (96-108); Estimated Glomerular Filt Rate > 60; Ferritin 83 ng/mL (10-122); Iron 79 mcg/dL (30-160); Magnesium 1.9 mg/dL (1.6-2.6); Percent Iron Saturation 31 % (15-50); Potassium 3.7 mmol/L (3.3-5.1); Sodium 140 mmol/L (135-145); Total Iron Binding Capacity 255 mcg/dL (228-428); Total Protein 7.1 g/dL (6.5-8.0); Unsaturated Iron Binding 176 ug/dL
== END 2025-10-18 09:27 | disposition home or self-care (01) ==
LOC: HO.WFDLDS 09:26
PROVIDERS: PCP Nurse Practitioner Family; Visit Provider Nurse Practitioner Family
DX: Z00.00 Encounter for general adult medical examination without abnormal findings (principal); Z13.31 Encounter for screening for depression; Z13.39 Encounter for screening examination for other mental health and behavioral disorders; E06.3 Autoimmune thyroiditis; E66.9 Obesity, unspecified; G90.2 Horner's syndrome
CPT/HCPCS: 36415; 80053; 82306; 82533; 82728; 83540; 83735; 84443; 96127